=== PATIENT | male | born 1950 | race Caucasian/White ===

== ENCOUNTER 2021-12-27 08:23 | Day surgery (SDC) | payer OTHER, SELFPAY ==
[~2021-12-27] VITALS: Ht 188 cm; Wt 115.7 kg
[~2021-12-27 08:23] MED LIST: CEFAZOLIN SOD 1 GM in D5W 50 ML IV ONE
[2021-12-27] MEDS ORDERED: ACETAMINOPHEN I.V. 1000 MG 100 ML IV ONE (10:54)
[2021-12-27] MEDS ORDERED: LR 1,000 ML IV SCH (11:15)
[2021-12-27] MEDS ORDERED: HYDROmorphone 1 MG/ML INJ. CARTRIDGE IVP PRN ×3 (11:15→12:30)
[2021-12-27] MEDS ORDERED: MEPERIDINE HCL/PF 25 MG/ML DISP.SYRIN IVP PRN (11:15)
[2021-12-27] MEDS ORDERED: METOCLOPRAMIDE HCL 10 MG/2 ML VIAL IVP PRN (11:15)
[2021-12-27] MEDS ORDERED: MIDAZOLAM HCL 5 MG/ML VIAL (VERSED) IV ONE (12:27)
[2021-12-27] MEDS ORDERED: DEXAMETHASONE SOD PHOSPHATE 4 MG/ML VIAL IVP ONE (12:27)
[2021-12-27] MEDS ORDERED: SUGAMMADEX SODIUM 200 MG/2 ML VIAL IV ONE (12:27)
[2021-12-27] MEDS ORDERED: PROPOFOL 200MG/ 20ML VIAL (DIPRIVAN) IV ONE (12:27)
[2021-12-27] MEDS ORDERED: ONDANSETRON HCL 4 MG/2 ML VIAL IVP ONE (12:27)
[2021-12-27] MEDS ORDERED: fentaNYL CITRATE/PF 100 MCG/2 ML AMP IVP ONE (12:27)
[2021-12-27] MEDS ORDERED: NS IRRIG SOLN 1000 ML IR ONE (12:27)
[2021-12-27] MEDS ORDERED: LR 1,000 ML IV.SOLN IV ONE (12:27)
[2021-12-27] MEDS ORDERED: ROCURONIUM BROMIDE 10 MG/ML (ZEMURON) IVP ONE (12:27)
[2021-12-27] MEDS ORDERED: BUPIVACAINE /EPINEPHRINE/PF 0.25% 30 ML VIAL INJ ONE (12:27)
[2021-12-27] MEDS ORDERED: DESFLURANE 15 MIN GAS INH ONE (12:27)
[2021-12-27] MEDS ORDERED: D5/0.45 NS 1,000 ML IV SCH (12:30)
[2021-12-27] MEDS ORDERED: HYDROcodone/ACETAMIN 5-325 MG TAB (NORCO/ VICODIN) PO PRN ×2 (12:30)
[2021-12-27] MEDS: HYDROmorphone 1 MG/ML INJ. CARTRIDGE ONE ×3 (12:38→17:56)
[2021-12-27 14:45] VITALS: BP_SYST 149
== END 2021-12-27 15:15 | disposition home or self-care (01) ==
LOC: SDS 08:23 → SMU 08:26 → SDS 15:15
PROVIDERS: ATTEND Colon & Rectal Surgery
DX: K40.31 Unilateral inguinal hernia, with obstruction, without gangrene, recurrent (principal); N43.3 Hydrocele, unspecified; K21.9 Gastro-esophageal reflux disease without esophagitis; E66.9 Obesity, unspecified; Z95.0 Presence of cardiac pacemaker; Z90.49 Acquired absence of other specified parts of digestive tract; Z98.84 Bariatric surgery status; Z96.649 Presence of unspecified artificial hip joint; Z20.822 Contact with and (suspected) exposure to COVID-19; Z79.899 Other long term (current) drug therapy
CPT/HCPCS: 36415; 49521; 55040; 87426; 88302; C1781; J0131; J0690; J1100; J1170; J2250; J2405; J2704; J3010; J3490 ×2; J7060; J7120; U0003